=== PATIENT | male | born 1980 | race Caucasian/White ===

== ENCOUNTER 2016-07-31 00:17 | Emergency (ER) | payer SELFPAY ==
[~2016-07-31] VITALS: Ht 180.3 cm; Wt 76.0 kg
[~2016-07-31 00:17] MED LIST: RANI150 PO; ZOFR4TAB3 SL
[2016-07-31 00:20] VITALS: BP 125/88; PULSE 108; RESP 16; TEMP 98.3; O2SAT 98
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
[2016-07-31] MEDS ORDERED: SUBO2MIS SL (01:52)
[2016-07-31 03:12] VITALS: BP 130/82; PULSE 99; RESP 14; O2SAT 99
[2016-07-31] MEDS ORDERED: NAPROXEN 500 MG TAB PO ONE (03:15)
[2016-07-31] MEDS ORDERED: NAPR500 PO (03:15)
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
== END 2016-07-31 03:52 | disposition home or self-care (01) ==
LOC: NEPC 00:17
DX: R07.89 Other chest pain (principal); S20.219A Contusion of unspecified front wall of thorax, initial encounter; X58.XXXA Exposure to other specified factors, initial encounter; Y93.9 Activity, unspecified; Y92.9 Unspecified place or not applicable
CPT/HCPCS: 71020; 99283